=== PATIENT | female | born 1990 | race African-American/Black ===

== ENCOUNTER 2017-11-12 03:53 | Emergency (ER) | payer SELFPAY ==
[~2017-11-12] VITALS: Ht 162.6 cm; Wt 66.0 kg
[~2017-11-12 03:53] MED LIST: BACTRIM DS1 TAB PO; DOXYCYCL HYC100 MG PO; KETOROLAC10 MG PO; LORTAB 1010 MG PO; LORTAB5 PO; MIRALAX3350 N1 PO; MOTRIN800 MG PO; NO HOME MEDS; ULTRAM50 M1 PO
[2017-11-12] MEDS ORDERED: HYDROCHLOROT25 MG PO (04:01)
[2017-11-12] MEDS ORDERED: LAMICTAL100 M1 PO (04:02)
[2017-11-12 04:43] LABS: HEMATOCRIT 31.5 % (37.0-47.0); IMMATURE GRANULOCYTES 0.3 % (0.0-1.0); MEAN CELL VOLUME 93.2 fL CALC (80.0-100.0); MEAN CORPUSCULAR HGB 29.6 pG CALC (26.0-32.0); MEAN CORPUSCULAR HGB CONC 31.7 g/L CALC (32.0-36.0); NEUT# 6.46 thou/uL (2.00-7.15); RED BLOOD COUNT 3.38 mill/uL (4.20-5.60); RED CELL DISTRI WIDTH 15.8 % (11.5-15.5)
[2017-11-12 04:49] LABS: ANION GAP 12 (6-22 (CALC)); BUN 6 mg/dL (7-17); BUN/CREATININE RATIO 8 (12-20 (CALC)); CALCIUM 9.8 mg/dL (8.4-10.2); CARBON DIOXIDE 28 mmol/l (22-30); CHLORIDE 102 mmol/l (95-108); CREATININE 0.7 mg/dL (0.5-1.0); GFR > 60 ML/MIN (>=60 (CALC)); GFR FOR AFR.AMER. > 60 ML/MIN (>=60 (CALC)); GLUCOSE 87 mg/dL (65-105); POTASSIUM 3.3 mmol/l (3.5-5.1); SODIUM 139 mmol/l (137-146)
[2017-11-12] MEDS ORDERED: AUGMENTIN875TAB PO (06:21)
[2017-11-12 06:38] VITALS: BP 135/70
== END 2017-11-12 06:38 | disposition home or self-care (01) | DRG 103 ==
LOC: ED 03:53
PROVIDERS: Family Medicine
DX: R51 Headache (principal); F14.90 Cocaine use, unspecified, uncomplicated; F17.210 Nicotine dependence, cigarettes, uncomplicated; J32.9 Chronic sinusitis, unspecified

== ENCOUNTER 2024-05-31 08:14 | Emergency (ER) | payer SELFPAY ==
[2024-05-31] VITALS (7 sets, daily range): BP systolic 127–159; BP diastolic 85–105
[~2024-05-31] VITALS: Ht 162.6 cm; Wt 63.5 kg
[~2024-05-31 08:14] MED LIST changes: +AUGMENTIN875TAB PO; +HYDROCHLOROT25 MG PO; +LAMICTAL100 M1 PO
[2024-05-31] MEDS ORDERED: FLUORESCEIN SODIUM 1 MG EA OS ONE (08:35)
[2024-05-31] MEDS ORDERED: TETRACAINE HCL 0.5 %/4 ML SOL OS ONE (08:35)
[2024-05-31] MEDS ORDERED: TOBREX OPTH5 ML/BTL OU (09:12)
== END 2024-05-31 09:42 | disposition home or self-care (01) | DRG 125 ==
LOC: ED 08:14
DX: S05.01XA Injury of conjunctiva and corneal abrasion without foreign body, right eye, initial encounter (principal); H10.9 Unspecified conjunctivitis; I10 Essential (primary) hypertension; F31.9 Bipolar disorder, unspecified; F17.210 Nicotine dependence, cigarettes, uncomplicated; X58.XXXA Exposure to other specified factors, initial encounter